=== PATIENT | female | born 1975 | race Caucasian/White ===

== ENCOUNTER 2018-03-26 22:31 | Emergency (ER) | payer BC ==
--- NOTE | 2018-03-26 23:26 | EDM.PDOC ---
ED HPI GENERAL MEDICAL PROBLEM - General Chief Complaint: WEEKEND RECEPTIONIST Problem Stated Complaint: vaginal bleeding Time Seen by Provider: 03/26/18 23:26 - History of Present Illness INITIAL COMMENTS - FREE TEXT/NARRATIVE: 42-year-old female presents emergency room with vaginal bleeding. She is 2-1/2 weeks had her 2 week check on Sunday and everything was well today she had a couple hours of much heavier than normal bleeding some of it was bright red she did pass a few clots. She called her medical administrator's office in [place] who advised the she come in to be checked. Patient denies any fevers or chills she's not having any abnormal discomfort she 's otherwise feeling really good. - Related Data Allergies Allergy/AdvReac Type Severity Reaction Status Date / Time morphine Allergy Nausea and Verified 02/01/18 14:33 Vomiting Home Meds: Home Meds No.137/Iron/Folic Acd [ Vitamin Tablet] 1 tab PO DAILY [History] Past Medical History Endocrine/Metabolic History: Reports: Diabetes, Gestational Other Endocrine/Metabolic History: on metformin Hematologic History: Reports: Anemia Other Hematologic History: during - Past Surgical History Female Surgical History: Reports: Section Social & Family History - Tobacco Use Smoking Status *Q: Never Smoker - Caffeine Use Caffeine Use: Reports: Coffee, Soda, Tea - Recreational Drug Use Recreational Drug Use: No ED ROS GENERAL - Review of Systems Review Of Systems: See Below Constitutional: Reports: No Symptoms HEENT: Reports: No Symptoms Respiratory: Reports: No Symptoms Cardiovascular: Reports: No Symptoms GI/Abdominal: Reports: No Symptoms : Reports: Other (Irregular vaginal bleeding) Musculoskeletal: Reports: No Symptoms ED EXAM - Physical Exam Exam: See Below Exam Limited By: No Limitations General Appearance: Alert, No Apparent Distress Head: Atraumatic, Normocephalic Neck: Normal Inspection, Supple, Non-Tender, Full Range of Motion Respiratory/Chest: No Respiratory Distress, Lungs Clear, Normal Breath Sounds Cardiovascular: Regular Rate, Rhythm, No Edema, No Murmur GI/Abdominal Exam: Normal Bowel Sounds, Soft, Non-Tender, Other (Uterus is palpated and was a little soft this firmed up quickly with palpation) Course - Vital Signs Last Recorded V/S: Last Vital Signs Temp 37.1 C 03/26/18 22:44 Pulse 79 03/26/18 22:44 Resp 20 03/26/18 22:44 BP 129/81 03/26/18 22:44 Pulse Ox 99 03/26/18 22:44 - Orders/Labs/Meds Orders: Active Orders 24 hr Category Date Time Status PATIENT RETYPE [BBK] Stat Lab 03/26/18 23:43 Results TYPE AND SCREEN [BBK] Stat Lab 03/26/18 23:43 Results Labs: Laboratory Tests 03/26/18 03/26/18 03/26/18 Range/Units 23:43 23:43 23:43 WBC 7.02 (3.98-10.04) K/mm3 RBC 4.37 (3.98-5.22) M/mm3 Hgb 12.0 (11.2-15.7) gm/L Hct 38.1 (34.1-44.9) % MCV 87.2 (79.4-94.8) fl MCH 27.5 (25.6-32.2) pg MCHC 31.5 L (32.2-35.5) g/dl RDW Std Deviation 45.0 (36.4-46.3) fL Plt Count 258 (182-369) K/mm3 MPV 9.3 L (9.4-12.3) fl Neutrophils % (Manual) 49 (40-60) % Band Neutrophils % 1 (0-10) % Lymphocytes % (Manual) 40 (20-40) % Atypical Lymphs % 0 % Monocytes % (Manual) 9 (2-10) % Eosinophils % (Manual) 1 (0.7-5.8) % Basophils % (Manual) 0 L (0.1-1.2) Platelet Estimate Adequate Plt Morphology Comment Normal RBC Morph Comment Normal PT 10.5 (9.5-12.1) SECONDS INR 0.96 APTT 25 (24-31) SECONDS Blood Type O POSITIVE Gel Antibody Screen Negative - Re-Assessments/Exams Free Text/Narrative Re-Assessment/Exam: 03/27/18 02:52 Patient is done well here in the emergency room she's basically had no more vaginal bleeding. Hemoglobin and hematocrit is stable. We will discharge her home she is to call her medical administrator later today. Departure - Departure Time of Disposition: 02:53 Disposition: Home, Self-Care 01 Clinical Impression: bleeding - Discharge Information Referrals: PCP,Not In Area [Primary Care Provider] - Forms: ED Department Discharge Additional Instructions: Return to the emergency room with any questions problems worsening symptoms. Call your medical administrator later today. Return to the emergency room if he develops any fevers abnormal pain or heavy bleeding. - My Orders Last 24 Hours: My Active Orders 03/26/18 23:43 PATIENT RETYPE [BBK] Stat TYPE AND SCREEN [BBK] Stat - Assessment/Plan Last 24 Hours: My Active Orders 03/26/18 23:43 PATIENT RETYPE [BBK] Stat TYPE AND SCREEN [BBK] Stat
== END 2018-03-27 03:00 | disposition home or self-care (01) ==
LOC: SUPCPDRO 22:31 → JD.ED 22:31
DX: O72.1 Other immediate postpartum hemorrhage (principal); Z88.5 Allergy status to narcotic agent
CPT/HCPCS: 36415; 85007; 85027; 85610; 85730; 86850; 86900; 86901; 99282; 99284